=== PATIENT | male | born 1970 | race Caucasian/White ===

== ENCOUNTER 2025-04-08 09:27 | Day surgery (SDC) | payer MEDICAID ==
[~2025-04-08 09:27] MED LIST: Sodium Chloride 0.9% 10 ML Syringe FLUSH PRN; Sodium Chloride 0.9% 10 ML Syringe FLUSH SCH
[2025-04-08] MEDS: Lactated Ringers 1,000 ML IV SCH (09:55)
[2025-04-08] MEDS ORDERED: Propofol 200 MG/20 ML SDV ONE ×2 (10:46→10:47)
[2025-04-08] MEDS ORDERED: Midazolam 1 MG/ML 2 ML SDV ONE (10:47)
[2025-04-08] MEDS ORDERED: Lidocaine 1% 4 ML ONE (10:47)
== END 2025-04-08 12:48 | disposition home or self-care (01) ==
LOC: JD.SDS 09:27
PROVIDERS: ATTEND Surgery
DX: K31.89 Other diseases of stomach and duodenum (principal); K31.7 Polyp of stomach and duodenum; K21.9 Gastro-esophageal reflux disease without esophagitis; Z79.899 Other long term (current) drug therapy
CPT/HCPCS: 43239; C9777; J2003; J2250; J2704; J7120; 00731